=== PATIENT | female | born 1980 | race Caucasian/White ===

== ENCOUNTER 2018-06-07 10:57 | Inpatient (IN) | payer BC ==
[2018-06-07] MEDS ORDERED: Butorphanol Tartrate 1 MG/ML VIAL SLOW IVP PRN (11:18)
[2018-06-07] MEDS ORDERED: Ondansetron PF 4 MG/2 ML Vial IVP PRN ×4 (11:18→18:51)
[2018-06-07] MEDS ORDERED: Lactated Ringer's 1,000 ML IV SCH ×3 (11:18→15:30)
[2018-06-07] MEDS ORDERED: CEFAZOLIN/Water 2 GM/20 ML SYRINGE SLOW IVP SCH (11:18)
[2018-06-07] MEDS ORDERED: Promethazine HCl 25 MG/ML VIAL IM PRN ×4 (11:18→18:51)
[2018-06-07] MEDS ORDERED: Bicitra 30 ML UDCUP PO SCH (11:18)
[2018-06-07 11:31] VITALS: BMI 46.4
[2018-06-07 12:50] LABS: Hemoglobin 11.3 g/dL (12.0-16.0); Mean Corpuscular HGB CONC 33.4 g/dL (32.0-36.0); Mean Corpuscular Hemoglobin 28.4 pg (27.0-31.0); Mean Corpuscular Volume 85.1 fL (78.0-98.0); Mean Platelet Volume 7.7 fL (7.4-10.4); Platelet Count 266 thou/uL (130-400); Red Blood Cell (RBC) Count 3.99 mill/uL (4.20-5.40); White Blood Cell (WBC) Count 8.8 thou/uL (4.8-10.8)
[2018-06-07 13:23] LABS: HBSAg Index 0.23 S/CO (0-0.99); Hep B Surf Ag Non-Reactive S/CO (NonReactive); Syphilis Antibody Nonreactive (Nonreactive); Syphilis Antibody Index 0.04 S/CO (<1.00 Non-Reactive)
[2018-06-07] MEDS ORDERED: PHENYLEPHRINE-NS 100 MCG/ML 10 ML SYRINGE ONE ×2 (13:56)
[2018-06-07] MEDS ORDERED: Ketorolac Tromethamine 30 MG/ML VIAL ONE ×2 (13:56→14:43)
[2018-06-07] MEDS ORDERED: Bupivacaine 0.75% W/DEXTROSE 8.25% 2 ML AMP ONE (13:56)
[2018-06-07] MEDS ORDERED: Dexamethasone 20 MG/5 ML VIAL ONE (13:56)
[2018-06-07] MEDS ORDERED: Lidocaine 1% PF 5 ML VIAL ONE (13:56)
[2018-06-07] MEDS ORDERED: Ondansetron PF 4 MG/2 ML Vial ONE ×2 (13:56)
[2018-06-07] MEDS ORDERED: Oxytocin 10 UNITS/ML VIAL ONE (13:56)
[2018-06-07] MEDS ORDERED: ePHEDrine/0.9% NaCl/PF SYRINGE 50 mg/10 ml ONE ×2 (13:56)
[2018-06-07] MEDS ORDERED: Morphine PF 1 MG/ML SYR ONE (13:57)
[2018-06-07] MEDS ORDERED: Dexamethasone 4 mg/ml Vial ONE (14:03)
[2018-06-07] MEDS ORDERED: L&D-Morphine 4 MG/ML VIAL SLOW IVP PRN (14:48)
[2018-06-07] MEDS ORDERED: Promethazine HCl 25 MG SUPP PR PRN ×2 (14:48→18:51)
[2018-06-07] MEDS ORDERED: Naloxone HCl 0.4 mg/ml Vial IVP PRN ×2 (14:48)
[2018-06-07] MEDS ORDERED: Naloxone HCl 0.4 mg/ml Vial IV PRN ×4 (14:48→18:51)
[2018-06-07] MEDS ORDERED: Ketorolac Tromethamine 30 MG/ML VIAL IVP PRN (14:48)
[2018-06-07] MEDS ORDERED: Eucerin (Mineral Oil/Petrolatum,White) 30 gm Jar TOP PRN (14:48)
[2018-06-07] MEDS ORDERED: diphenhydrAMINE 50 MG/ML VIAL IVP PRN ×2 (14:48→18:51)
[2018-06-07] MEDS ORDERED: HYDROmorphone 2 MG/ML VIAL SLOW IVP PRN (14:48)
[2018-06-07] MEDS ORDERED: Ondansetron HCl/PF 4 MG/2 ML Vial IVP PRN (14:48)
[2018-06-07] MEDS ORDERED: Meperidine HCl/PF 25 MG/ML VIAL SLOW IVP PRN (14:48)
[2018-06-07] MEDS ORDERED: Ketorolac Tromethamine 30 MG/ML VIAL IVP SCH (15:00)
[2018-06-07] MEDS ORDERED: Communication Order-Pharmacy FS SCH (15:00)
[2018-06-07] MEDS ORDERED: NS / Oxytocin 40 units/1000ml 1,000 ML ONE (15:16)
[2018-06-07] MEDS ORDERED: Simethicone Chewable 80 MG TAB PO PRN (15:19)
[2018-06-07] MEDS ORDERED: Methylergonovine 0.2 MG/ML VIAL IM PRN (15:19)
[2018-06-07] MEDS ORDERED: Lanolin Ointment 7 GM TUBE TOP PRN (15:19)
[2018-06-07] MEDS ORDERED: Varicella virus, LIVE 0.5 ML VIAL SC ONE (15:19)
[2018-06-07] MEDS ORDERED: Misoprostol 200 MCG TAB PR PRN (15:19)
[2018-06-07] MEDS ORDERED: Measles/Mumps/Rubella 10 MCG/0.5 ML VIAL SC ONE (15:19)
[2018-06-07] MEDS ORDERED: Adacel (T-DAP) 0.5 ML VIAL IM ONE (15:19)
[2018-06-07] MEDS ORDERED: NS / Oxytocin 40 units/1000ml 1,000 ML IV SCH (15:30)
[2018-06-07] MEDS ORDERED: Bicitra 30 ML UDCUP ONE (15:54)
[2018-06-07] MEDS ORDERED: CEFAZOLIN/Water 2 GM/20 ML SYRINGE ONE (15:54)
[2018-06-07] MEDS: diphenhydrAMINE 25 MG CAP PO PRN ×2 (16:37→21:19)
[2018-06-07] MEDS ORDERED: NO PO,IM,IV OR SC NARCOTICS FOR 12HR EXCEPT BY ANESTHESIA PO SCH (18:51)
[2018-06-07] MEDS ORDERED: Hydrocerin (Eucerin) Cream 120 gm Jar TOP PRN (18:51)
[2018-06-07] MEDS: Docusate Calcium (SURFAK) 240 MG CAP PO SCH (21:18)
[2018-06-07] MEDS: Ferrous Sulfate 325 MG TAB PO SCH (21:18)
[2018-06-07] MEDS: Ketorolac Tromethamine 30 MG/ML VIAL IVP PRN (21:19)
[2018-06-08] MEDS: Ketorolac Tromethamine 30 MG/ML VIAL IVP PRN (02:38)
[2018-06-08] MEDS ORDERED: HYDROcodone/Acetaminophen 5/325 mg Tablet PO PRN (03:00)
[2018-06-08] MEDS ORDERED: Zolpidem Tartrate 5 MG TAB PO PRN (03:00)
--- NOTE | 2018-06-08 07:34 | ADD-OP ---
DATE OF SERVICE: 06/07/2018 I was present and scrubbed to assist the uncomplicated repeat with Dr. Gume Laird. Yadira taylor see his note for full details.
[2018-06-08 07:55] LABS: Hemoglobin 9.4 g/dL (12.0-16.0); Mean Corpuscular HGB CONC 33.3 g/dL (32.0-36.0); Mean Corpuscular Hemoglobin 28.8 pg (27.0-31.0); Mean Corpuscular Volume 86.4 fL (78.0-98.0); Platelet Count 227 thou/uL (130-400); RBC Distribution Width 12.2 % (11.5-14.5); Red Blood Cell (RBC) Count 3.27 mill/uL (4.20-5.40); White Blood Cell (WBC) Count 11.9 thou/uL (4.8-10.8)
[2018-06-08] MEDS: Docusate Calcium (SURFAK) 240 MG CAP PO SCH ×2 (08:38→21:34)
[2018-06-08] MEDS: Prenatal Vitamin 1 TAB PO SCH (08:38)
--- NOTE | 2018-06-08 08:38 | PDOC.PP ---
Post Progress Note Post Day #: 1 PO intake tolerated: yes Flatus: yes Ambulation: yes Vital Signs (12 hours) Temp Pulse Resp BP Pulse Ox 06/08/18 08:20 98.3 F 60 14 97/52 L 100 06/08/18 08:00 98 06/08/18 00:00 98.3 F 60 20 103/57 L Weight Weight 279 lb - Physical Examination General: NAD Cardiovascular: no m/r/g, RRR Respiratory: clear to auscultation bilaterally, non-labored breathing Abdominal: + bowel sounds, lochia, no distention, appropriately TTP Extremities: negative homans (B) Skin: CS incision dry & intact, no rash Neurological: no gross focal deficits Psychiatric: A&Ox3, normal affect Result Diagrams: 06/08/18 07:13 Additional Labs: Post Labs Blood Type O POSITIVE 06/07/18 12:16 Hep Bs Antigen Non-Reactive S/CO (NonReactive) 06/07/18 12:16 (1) Delivered by section Code(s): O82 - ENCOUNTER FOR DELIVERY WITHOUT INDICATION Status: Acute - Assessment/Plan doing well post op day 1. will dc pm 2 or day 3
[2018-06-08] MEDS: Ferrous Sulfate 325 MG TAB PO SCH ×2 (08:39→19:15)
[2018-06-08] MEDS: Ibuprofen 800 MG TAB PO SCH ×3 (10:25→16:55)
[2018-06-08] MEDS: Polyethylene Glycol 3350 17 GM Packet PO PRN (15:13)
[2018-06-08] MEDS: HYDROcodone/Acetaminophen 5/325 mg Tablet PO PRN ×2 (15:16→21:35)
[2018-06-09] MEDS: Ibuprofen 800 MG TAB PO SCH ×3 (00:46→17:14)
[2018-06-09] MEDS: HYDROcodone/Acetaminophen 5/325 mg Tablet PO PRN ×4 (01:19→20:49)
[2018-06-09] MEDS: Ferrous Sulfate 325 MG TAB PO SCH ×2 (08:42→20:49)
[2018-06-09] MEDS: Prenatal Vitamin 1 TAB PO SCH (08:42)
[2018-06-09] MEDS: Docusate Calcium (SURFAK) 240 MG CAP PO SCH ×2 (08:42→20:49)
--- NOTE | 2018-06-09 10:27 | PDOC.PP ---
Post Progress Note Post Day #: 2 PO intake tolerated: yes Flatus: yes Ambulation: yes Vital Signs (12 hours) Temp Pulse Resp BP Pulse Ox 06/09/18 08:03 97.8 F 63 20 103/59 L 97 06/09/18 04:30 97.9 F 61 16 98/56 L 97 06/09/18 01:15 98.0 F 65 20 98/58 L 100 Weight Weight 279 lb - Physical Examination General: NAD Cardiovascular: no m/r/g, RRR Respiratory: clear to auscultation bilaterally, non-labored breathing Abdominal: + bowel sounds, lochia Extremities: negative homans (B) Skin: CS incision dry & intact, no rash Neurological: no gross focal deficits Psychiatric: A&Ox3, normal affect Result Diagrams: 06/08/18 07:13 Additional Labs: Post Labs Blood Type O POSITIVE 06/07/18 12:16 Hep Bs Antigen Non-Reactive S/CO (NonReactive) 06/07/18 12:16 (1) Delivered by section Code(s): O82 - ENCOUNTER FOR DELIVERY WITHOUT INDICATION Status: Acute - Assessment/Plan doing well rx for norco sent to pharmacy. home in am
[2018-06-09] MEDS: Polyethylene Glycol 3350 17 GM Packet PO PRN (11:17)
[2018-06-09] MEDS ORDERED: diphenhydrAMINE 25 MG CAP PO PRN (15:37)
[2018-06-09] MEDS ORDERED: HYDROcodone/Acetaminophen 5/325 mg Tablet PO PRN (15:38)
[2018-06-09] MEDS ORDERED: Methylergonovine 0.2 MG/ML VIAL IM PRN (15:38)
[2018-06-09] MEDS ORDERED: Lanolin Ointment 7 GM TUBE TOP PRN (15:38)
[2018-06-09] MEDS ORDERED: Simethicone Chewable 80 MG TAB PO PRN (15:39)
[2018-06-09] MEDS ORDERED: Zolpidem Tartrate 5 MG TAB PO PRN (15:39)
[2018-06-09] MEDS ORDERED: Ondansetron PF 4 MG/2 ML Vial IVP PRN (15:40)
[2018-06-09] MEDS ORDERED: diphenhydrAMINE 50 MG/ML VIAL IVP PRN (15:40)
[2018-06-09] MEDS ORDERED: Naloxone HCl 0.4 mg/ml Vial IV PRN ×3 (15:40→15:41)
[2018-06-09] MEDS ORDERED: Promethazine HCl 25 MG/ML VIAL IM PRN (15:40)
[2018-06-09] MEDS ORDERED: Promethazine HCl 25 MG SUPP PR PRN (15:40)
[2018-06-09] MEDS ORDERED: Hydrocerin (Eucerin) Cream 120 gm Jar TOP PRN (15:41)
[2018-06-09] MEDS ORDERED: Lactated Ringer's 1,000 ML IV SCH (15:45)
[2018-06-09] MEDS ORDERED: NS / Oxytocin 40 units/1000ml 1,000 ML IV SCH (15:45)
[2018-06-09] MEDS ORDERED: Polyethylene Glycol 3350 17 GM Packet PO PRN (15:46)
[2018-06-10] MEDS: Ibuprofen 800 MG TAB PO SCH ×2 (00:26→08:58)
[2018-06-10] MEDS: HYDROcodone/Acetaminophen 5/325 mg Tablet PO PRN ×3 (00:27→12:16)
--- NOTE | 2018-06-10 05:39 | PDOC.PP ---
Post Progress Note Post Day #: POD3 Subjective: Tolerating regular diet. No c/o. PO intake tolerated: yes Flatus: yes Ambulation: yes Vital Signs (12 hours) Temp Pulse Resp BP Pulse Ox 06/09/18 20:00 97.7 F 74 16 110/58 L 98 Weight Weight 126.552 kg - Physical Examination General: NAD Respiratory: non-labored breathing Abdominal: no distention Skin: CS incision dry & intact Psychiatric: normal affect Result Diagrams: 06/08/18 07:13 Additional Labs: Post Labs Blood Type O POSITIVE 06/07/18 12:16 Hep Bs Antigen Non-Reactive S/CO (NonReactive) 06/07/18 12:16 - Assessment/Plan DC home. Precautions. F/u [address] aLird.
[2018-06-10 08:22] VITALS: BP 104/59; TEMP 98
[2018-06-10] MEDS: Docusate Calcium (SURFAK) 240 MG CAP PO SCH (08:55)
[2018-06-10] MEDS: Ferrous Sulfate 325 MG TAB PO SCH (08:56)
[2018-06-10] MEDS ORDERED: Prenatal Vitamin 1 TAB PO SCH (09:00)
== END 2018-06-10 13:00 | disposition home or self-care (01) | DRG 788 ==
LOC: L&D 10:57 → 3SW 17:46 → UNDODISIN 06-09 14:13
PROVIDERS: ADMIT Obstetrics & Gynecology; ATTEND Obstetrics & Gynecology
PROC: 10D00Z1 Extraction of Products of Conception, Low, Open Approach (ICD-10-PCS; principal; 2018-06-07)
PROC: 10907ZC Drainage of Amniotic Fluid, Therapeutic from Products of Conception, Via Natural or Artificial Opening (ICD-10-PCS; 2018-06-07)
DX: O34.211 Maternal care for low transverse scar from previous cesarean delivery (principal); Z3A.37 37 weeks gestation of pregnancy; Z37.0 Single live birth; O76 Abnormality in fetal heart rate and rhythm complicating labor and delivery
CPT/HCPCS: 36415; 51702; 85027; 86780; 86850; 86900; 86901; 87340; 88307; 90707; 90715; 90716; J1100; J1885; J2001; J2274; J2405; J2590; J3490

== ENCOUNTER 2018-12-22 08:30 | Outpatient (CLI) | payer BC ==
--- NOTE | 2018-12-22 10:09 | RAD ---
BIPHASIC UPPER GI: HISTORY: Bariatric surgery status FINDINGS: The admin secretary film demonstrates postop changes in the right upper quadrant.. Swallowing was grossly normal. There is unobstructed flow of contrast through the esophagus into the stomach, duodenum and the proximal jejunum. No obstructing mass, stricture or diverticulum is seen. No GE reflux was demonstrated during the Valsalva maneuver. IMPRESSION: Normal exam.
== END 2018-12-22 08:31 | disposition home or self-care (01) ==
LOC: RAD 08:30
PROVIDERS: ATTEND Specialist
DX: Z48.815 Encounter for surgical aftercare following surgery on the digestive system (principal); Z98.84 Bariatric surgery status
CPT/HCPCS: 74241

== ENCOUNTER 2021-07-27 12:41 | Outpatient (CLI) | payer BC | END 2021-07-27 12:42 | disposition home or self-care (01) | LOC: CT 12:41 | PROVIDERS: ATTEND Psychiatry & Neurology Neurology | DX: R41.89 Other symptoms and signs involving cognitive functions and awareness (principal) | CPT/HCPCS: 70450; 95816 ==

== ENCOUNTER 2023-05-25 09:54 | Outpatient (CLI) | payer BC | END 2023-05-25 09:55 | disposition home or self-care (01) | LOC: BICMAMMO 09:54 | PROVIDERS: ATTEND Obstetrics & Gynecology | DX: N63.20 Unspecified lump in the left breast, unspecified quadrant (principal) | CPT/HCPCS: G0279 ==